=== PATIENT | female | born 1940 | race African-American/Black ===

== ENCOUNTER 2017-09-06 11:44 | Inpatient (IN) | payer BC, MEDICARE ==
[2017-09-06] MEDS: ACETAMINOPHEN 325 MG TABLET. PO (12:28)
[2017-09-06 12:57] LABS: BASO % 0 % (0-3); EOS % 1 % (0-3); HEMATOCRIT 31.7 % (36.0-47.0); HEMOGLOBIN 10.8 g/dL (12.0-15.5); LYMPH # 0.4 x10^3/uL (1.0-4.8); LYMPH % 10 % (24-48); MEAN CORPUSCULAR HEMOGLOBIN 32 pg (25-35); MEAN CORPUSCULAR HGB CONC 34 g/dL (31-37); MEAN CORPUSCULAR VOLUME 94 fL (79-100); MONO # 0.7 x10^3/uL (0.0-1.1); MONO % 17 % (0-9); NEUT % 72 % (31-73); PLATELET COUNT 254 x10^3/uL (140-400); RED BLOOD COUNT 3.38 x10^6/uL (3.50-5.40); RED CELL DISTRIBUTION WIDTH 13.8 % (11.5-14.5); WHITE BLOOD COUNT 4.2 x10^3/uL (4.0-11.0)
[2017-09-06 13:05] LABS: ADD MAN DIFF? YES
[2017-09-06 13:07] LABS: ANION GAP 6 (6-14); BLOOD UREA NITROGEN 20 mg/dL (7-20); BUN/CREATININE RATIO 14 (6-20); CALCIUM 8.8 mg/dL (8.5-10.1); CARBON DIOXIDE 29 mmol/L (21-32); CHLORIDE 101 mmol/L (98-107); CREATININE 1.4 mg/dL (0.6-1.0); GFR 44.2; GLUCOSE 110 mg/dL (70-99); SODIUM 136 mmol/L (136-145)
[2017-09-06 13:14] LABS: LACTIC ACID 0.9 mmol/L (0.4-2.0)
[2017-09-06 13:17] LABS: NT-PRO BNP 1002 pg/mL (0-449)
[2017-09-06 13:20] LABS: ALBUMIN 3.5 g/dL (3.4-5.0); ALBUMIN/GLOBULIN RATIO 0.7 (1.0-1.7); ALK PHOS 60 U/L (46-116); ALT (SGPT) 12 U/L (14-59); AST (SGOT) 18 U/L (15-37); INFLUENZA A PATIENT NEGATIVE (NEGATIVE); INFLUENZA B PATIENT NEGATIVE (NEGATIVE); OBC FLU VALID; TOTAL BILIRUBIN 0.3 mg/dL (0.2-1.0); TOTAL PROTEIN 8.2 g/dL (6.4-8.2)
[2017-09-06 13:24] LABS: % BASOS 1 % (0-3); % EOS 1 % (0-5); % LYMPHS 10 % (24-48); % MONOS 15 % (0-10); % SEGS 73 % (35-66); PLT ESTIMATE ADEQUATE (ADEQUATE)
[2017-09-06] MEDS ORDERED: ACETAMINOPHEN 325 MG TABLET. PO (14:00)
[2017-09-06 14:02] LABS: TROPONINI < 0.017 ng/mL (0.000-0.055)
[2017-09-06] MEDS: FUROSEMIDE 20 MG/2 ML VIAL. IVP (14:46)
[2017-09-06 15:10] LABS: BILIRUBIN,URINE NEGATIVE (NEG); CLARITY,URINE CLEAR; COLOR,URINE YELLOW; GLUCOSE,URINE NEGATIVE (NEG); NITRITE,URINE NEGATIVE (NEG); PH,URINE 7.5; PROTEIN,URINE NEGATIVE (NEG-TRACE)
[2017-09-06] MEDS: IPRATRPIUM/ALBUTEROL 0.5/2.5MG 3 ML NEBU. NEB ×2 (15:18→20:51)
[2017-09-06 15:24] LABS: BACTERIA,URINE 0 /HPF (0-FEW); RBC,URINE 0 /HPF (0-2); SQUAMOUS EPITHELIAL CELL,UR FEW /LPF; WBC,URINE 0 /HPF (0-4)
[2017-09-06] MEDS: dilTIAZem IV PUSH 25 MG/5 ML VIAL IVP (17:24)
[2017-09-06] MEDS: dilTIAZem VIAL 125 MG in IV DEXTROSE 5% 100 ML IV (17:36)
[2017-09-06 19:43] LABS: TROPONINI < 0.017 ng/mL (0.000-0.055)
[2017-09-06] MEDS: BUDESONIDE 0.5 MG/2 ML NEBU. NEB (20:52)
[2017-09-06] MEDS: CETIRIZINE HCL 10 MG TABLET. PO (21:06)
[2017-09-06] MEDS: MONTELUKAST SODIUM 10 MG TABLET. PO (21:07)
[2017-09-07] MEDS: PROMETH/CODEINE 6.25/10MG 5 ML SYRUP. PO (01:16)
[2017-09-07 03:51] LABS: ADD MAN DIFF? NO
[2017-09-07] MEDS: dilTIAZem VIAL 125 MG in IV DEXTROSE 5% 100 ML IV (03:51)
[2017-09-07 03:55] LABS: BASO % 1 % (0-3); EOS % 0 % (0-3); HEMATOCRIT 31.8 % (36.0-47.0); LYMPH # 0.5 x10^3/uL (1.0-4.8); LYMPH % 13 % (24-48); MEAN CORPUSCULAR HEMOGLOBIN 32 pg (25-35); MEAN CORPUSCULAR HGB CONC 34 g/dL (31-37); MEAN CORPUSCULAR VOLUME 94 fL (79-100); MONO # 0.6 x10^3/uL (0.0-1.1); MONO % 19 % (0-9); NEUT # 2.3 x10^3uL (1.8-7.7); NEUT % 67 % (31-73); PLATELET COUNT 226 x10^3/uL (140-400); RED BLOOD COUNT 3.41 x10^6/uL (3.50-5.40); RED CELL DISTRIBUTION WIDTH 13.9 % (11.5-14.5); WHITE BLOOD COUNT 3.4 x10^3/uL (4.0-11.0)
[2017-09-07 04:09] LABS: ANION GAP 8 (6-14); BLOOD UREA NITROGEN 18 mg/dL (7-20); CALCIUM 8.9 mg/dL (8.5-10.1); CARBON DIOXIDE 28 mmol/L (21-32); CHLORIDE 97 mmol/L (98-107); CREATININE 1.6 mg/dL (0.6-1.0); GFR 37.9; GLUCOSE 121 mg/dL (70-99); MAGNESIUM 1.5 mg/dL (1.8-2.4); POTASSIUM 3.8 mmol/L (3.5-5.1); SODIUM 133 mmol/L (136-145)
[2017-09-07] MEDS: BUDESONIDE 0.5 MG/2 ML NEBU. NEB ×2 (08:42→18:22)
[2017-09-07] MEDS: IPRATRPIUM/ALBUTEROL 0.5/2.5MG 3 ML NEBU. NEB ×4 (08:42→18:22)
[2017-09-07] MEDS ORDERED: FUROSEMIDE 40 MG TABLET. PO (09:00)
[2017-09-07] MEDS: PANTOPRAZOLE 40 MG TABLET.DR. PO (09:04)
[2017-09-07] MEDS: LISINOPRIL 10 MG TABLET PO (09:06)
[2017-09-07 10:04] LABS: LACTIC ACID 1.1 mmol/L (0.4-2.0)
[2017-09-07] MEDS: MAGNESIUM SULFATE 4GM 100 ML IV (10:06)
[2017-09-07 10:58] LABS: THYROID STIM HORMONE (TSH) 1.841 uIU/mL (0.358-3.74)
[2017-09-07 10:58] LABS: FREE T4 1.11 ng/dL (0.76-1.46)
[2017-09-07] MEDS: CEFEPIME HCL 1 GM in IV NORMAL SALINE 50ML 50 ML IV ×2 (12:00→20:18)
[2017-09-07] MEDS: VANCOMYCIN 2 GM in IV DEXTROSE 5 %-0.2 % NACL 500 ML IV (12:58)
[2017-09-07] MEDS: VANCOMYCIN PER PHARMACY MC (13:32)
[2017-09-07 13:52] LABS: BILIRUBIN,URINE NEGATIVE (NEG); CLARITY,URINE CLEAR; COLOR,URINE YELLOW; GLUCOSE,URINE NEGATIVE (NEG); NITRITE,URINE NEGATIVE (NEG); PH,URINE 5.5; PROTEIN,URINE NEGATIVE (NEG-TRACE)
[2017-09-07 14:02] LABS: BACTERIA,URINE 0 /HPF (0-FEW); HYALINE CASTS, URINE OCCASIONAL /HPF; RBC,URINE 0 /HPF (0-2); SQUAMOUS EPITHELIAL CELL,UR FEW /LPF; WBC,URINE 0 /HPF (0-4)
[2017-09-07 16:03] LABS: CHOLESTEROL 195 mg/dL (0-200); HDLC 60 mg/dL (40-60); LDLC 119 mg/dL (0-100); NON-HDL CHOLESTEROL 135 mg/dL (0-129); TRIGLYCERIDES 79 mg/dL (0-150); VLDLC 16 mg/dL (0-40)
[2017-09-07 16:09] LABS: CHOLESTEROL/HDL RATIO 3.3
[2017-09-07] MEDS: ASPIRIN ENTERIC COATED 81 MG TABLET.DR. PO (16:21)
[2017-09-07] MEDS: METOPROLOL TART IMMED RELEASE 25 MG TABLET. PO ×2 (16:21→20:18)
[2017-09-07] MEDS: MONTELUKAST SODIUM 10 MG TABLET. PO (20:18)
[2017-09-07] MEDS: LACTOBACILLUS RHAMNOSUS GG 1 CAPSULE. PO (20:18)
[2017-09-07] MEDS: CETIRIZINE HCL 10 MG TABLET. PO (20:18)
[2017-09-08] MEDS: CEFEPIME HCL 1 GM in IV NORMAL SALINE 50ML 50 ML IV ×3 (05:49→20:38)
[2017-09-08 06:38] LABS: ADD MAN DIFF? NO
[2017-09-08 06:58] LABS: BASO % 0 % (0-3); EOS % 1 % (0-3); HEMATOCRIT 31.2 % (36.0-47.0); HEMOGLOBIN 10.6 g/dL (12.0-15.5); LYMPH # 0.7 x10^3/uL (1.0-4.8); LYMPH % 28 % (24-48); MEAN CORPUSCULAR HEMOGLOBIN 32 pg (25-35); MEAN CORPUSCULAR HGB CONC 34 g/dL (31-37); MEAN CORPUSCULAR VOLUME 94 fL (79-100); MONO # 0.6 x10^3/uL (0.0-1.1); MONO % 25 % (0-9); NEUT # 1.1 x10^3uL (1.8-7.7); NEUT % 46 % (31-73); PLATELET COUNT 200 x10^3/uL (140-400); RED BLOOD COUNT 3.33 x10^6/uL (3.50-5.40); RED CELL DISTRIBUTION WIDTH 14.2 % (11.5-14.5); WHITE BLOOD COUNT 2.4 x10^3/uL (4.0-11.0)
[2017-09-08 07:01] LABS: ANION GAP 7 (6-14); BLOOD UREA NITROGEN 23 mg/dL (7-20); CALCIUM 8.2 mg/dL (8.5-10.1); CARBON DIOXIDE 29 mmol/L (21-32); CHLORIDE 99 mmol/L (98-107); CREATININE 1.7 mg/dL (0.6-1.0); GFR 35.4; GLUCOSE 115 mg/dL (70-99); MAGNESIUM 2.5 mg/dL (1.8-2.4); POTASSIUM 3.8 mmol/L (3.5-5.1); SODIUM 135 mmol/L (136-145)
[2017-09-08] MEDS: IPRATRPIUM/ALBUTEROL 0.5/2.5MG 3 ML NEBU. NEB ×4 (07:57→19:05)
[2017-09-08] MEDS: BUDESONIDE 0.5 MG/2 ML NEBU. NEB ×2 (07:57→19:06)
[2017-09-08] MEDS: PROMETH/CODEINE 6.25/10MG 5 ML SYRUP. PO ×2 (08:40→21:57)
[2017-09-08] MEDS: PANTOPRAZOLE 40 MG TABLET.DR. PO (08:41)
[2017-09-08] MEDS: ASPIRIN ENTERIC COATED 81 MG TABLET.DR. PO (08:41)
[2017-09-08] MEDS: LACTOBACILLUS RHAMNOSUS GG 1 CAPSULE. PO ×2 (08:41→20:39)
[2017-09-08] MEDS: METOPROLOL TART IMMED RELEASE 25 MG TABLET. PO ×2 (08:41→20:39)
[2017-09-08] MEDS: LOSARTAN POTASSIUM 50 MG TABLET. PO (08:44)
[2017-09-08 09:14] LABS: PROCALCITONIN 0.15 ng/mL (0.00-0.10)
[2017-09-08] MEDS: VANCOMYCIN PER PHARMACY MC (10:43)
[2017-09-08] MEDS: VANCOMYCIN 1.75 GM in IV DEXTROSE 5 %-0.2 % NACL 500 ML IV (15:04)
[2017-09-08] MEDS: CETIRIZINE HCL 10 MG TABLET. PO (20:38)
[2017-09-08] MEDS: MONTELUKAST SODIUM 10 MG TABLET. PO (20:39)
[2017-09-08] MEDS: ATORVASTATIN CALCIUM 10 MG TABLET. PO (20:39)
[2017-09-09] MEDS: LORazepam 0.5 MG TABLET PO (03:03)
[2017-09-09 04:57] LABS: ADD MAN DIFF? NO
[2017-09-09 05:13] LABS: BASO % 1 % (0-3); EOS % 2 % (0-3); HEMATOCRIT 31.8 % (36.0-47.0); HEMOGLOBIN 10.8 g/dL (12.0-15.5); LYMPH # 0.9 x10^3/uL (1.0-4.8); LYMPH % 32 % (24-48); MEAN CORPUSCULAR HEMOGLOBIN 32 pg (25-35); MEAN CORPUSCULAR HGB CONC 34 g/dL (31-37); MEAN CORPUSCULAR VOLUME 94 fL (79-100); MONO # 0.5 x10^3/uL (0.0-1.1); MONO % 20 % (0-9); NEUT # 1.2 x10^3uL (1.8-7.7); NEUT % 45 % (31-73); PLATELET COUNT 200 x10^3/uL (140-400); RED BLOOD COUNT 3.37 x10^6/uL (3.50-5.40); RED CELL DISTRIBUTION WIDTH 13.8 % (11.5-14.5); WHITE BLOOD COUNT 2.7 x10^3/uL (4.0-11.0)
[2017-09-09 05:48] LABS: ANION GAP 7 (6-14); BLOOD UREA NITROGEN 31 mg/dL (7-20); CALCIUM 8.5 mg/dL (8.5-10.1); CARBON DIOXIDE 30 mmol/L (21-32); CHLORIDE 101 mmol/L (98-107); CREATININE 1.8 mg/dL (0.6-1.0); GFR 33.1; GLUCOSE 108 mg/dL (70-99); SODIUM 138 mmol/L (136-145)
[2017-09-09] MEDS: CEFEPIME HCL 1 GM in IV NORMAL SALINE 50ML 50 ML IV (05:52)
[2017-09-09] MEDS: IPRATRPIUM/ALBUTEROL 0.5/2.5MG 3 ML NEBU. NEB (07:23)
[2017-09-09] MEDS: BUDESONIDE 0.5 MG/2 ML NEBU. NEB (07:24)
[2017-09-09] MEDS: METOPROLOL TART IMMED RELEASE 25 MG TABLET. PO (08:48)
[2017-09-09] MEDS: LOSARTAN POTASSIUM 50 MG TABLET. PO (08:48)
[2017-09-09] MEDS: ASPIRIN ENTERIC COATED 81 MG TABLET.DR. PO (08:48)
[2017-09-09] MEDS: PANTOPRAZOLE 40 MG TABLET.DR. PO (08:48)
[2017-09-09] MEDS: LACTOBACILLUS RHAMNOSUS GG 1 CAPSULE. PO (08:48)
[2017-09-09] MEDS ORDERED: IV NORMAL SALINE 500ML BAG 500 ML IV (09:45)
== END 2017-09-09 12:35 | disposition home or self-care (01) | DRG 865 ==
LOC: ER 11:44 → 2 SOUTH 13:55
DX: B34.9 Viral infection, unspecified (principal); I50.31 Acute diastolic (congestive) heart failure; J18.9 Pneumonia, unspecified organism; I31.3 Pericardial effusion (noninflammatory); I13.0 Hypertensive heart and chronic kidney disease with heart failure and stage 1 through stage 4 chronic kidney disease, or unspecified chronic kidney disease; E83.42 Hypomagnesemia; D63.8 Anemia in other chronic diseases classified elsewhere; I35.0 Nonrheumatic aortic (valve) stenosis; E66.01 Morbid (severe) obesity due to excess calories; I47.1 Supraventricular tachycardia; N18.3 Chronic kidney disease, stage 3 (moderate); I16.0 Hypertensive urgency; D72.821 Monocytosis (symptomatic); E55.9 Vitamin D deficiency, unspecified; E78.5 Hyperlipidemia, unspecified; I25.10 Atherosclerotic heart disease of native coronary artery without angina pectoris; J30.9 Allergic rhinitis, unspecified; K21.9 Gastro-esophageal reflux disease without esophagitis; K76.0 Fatty (change of) liver, not elsewhere classified; Z96.659 Presence of unspecified artificial knee joint; M19.90 Unspecified osteoarthritis, unspecified site; Z82.49 Family history of ischemic heart disease and other diseases of the circulatory system; Z98.49 Cataract extraction status, unspecified eye; Z83.3 Family history of diabetes mellitus; Z90.710 Acquired absence of both cervix and uterus
CPT/HCPCS: 36415; 71046; 71250; 80048; 80053; 80061; 81001; 83605; 83735; 83880; 84145; 84439; 84443; 84484; 85007; 85025; 87040; 87804; 87804-59; 93005; 93306; 94640; 94760; 96374; 99285; 99285-25; J0692; J3370; J3475; J3490; J7620; J7626

== ENCOUNTER → 2021-10-19 | Outpatient (CLI) | payer BC ==
[2017-09-09 10:29] VITALS: BP 130/72
[~2021-10-19] MED LIST: ASPI-886 PO; ATOR10TA60 PO; BUPIVACAINE MPF 0.5% 10 ML VIAL. IJ ONE; CETI10TA16 PO; IOHEXOL 300 MG/ML 50 ML VIAL. INT ART ONE; LACT1CAP19 PO; LIDOCAINE 1% Multi-Dose 20 ML VIAL. INJ ONE; LISI10TA16 PO; METO25TA4 PO; MONT10TA49 PO; PROM118S5 PO; TRIA1CAP3 PO; TRIAMCINOLONE PRES.FREE 40 MG/ML VIAL. INT ART ONE
--- NOTE | 2021-10-19 16:03 | RAD ---
EXAM: Right hip injection WITH Fluoroscopic guidance CLINICAL HISTORY: Right hip pain COMPARISON: None pertinent TECHNIQUE: The patient was informed of the indications and alternatives for this procedure as well as risks and benefits. No immediate contraindication identified. The patient provided informed, written consent. Laterality was confirmed by the entire team following a time out. Following initial flouroscopic localization, a suitable area was sterilely prepped and draped. Local anesthesia was administered with 1% lidocaine. With fluoroscopic observation, a 22 gauge spinal needl e was advanced into the Right hip joint with confirmation of intra-articular position with infusion o f a few cc of iodinated contrast. Subsequent infusion 4 mL bupivacaine 0.5 percent and 2 mL Kenalog 4 0. Hemostasis with local pressure. Local clinical exam negative for immediate complication. Patient informed re local potential signs or symptoms that may indicate need to return to ER/Ordering physician for further evaluation. Patient informed re precautionary measures after intra-synovial in jection of anesthetic. Total Fluoroscopy time: 0.2 minutes Total spot images taken: 1 IMPRESSION: Successful intra-articular steroid injection of the Right hip per clinical request. Electronically signed by: Moo Scott MD (10/19/2021 4:00 PM) [id number]
== END | disposition home or self-care (01) ==
LOC: RAD 13:36
PROVIDERS: ATTEND Internal Medicine Rheumatology
DX: M25.551 Pain in right hip (principal); I10 Essential (primary) hypertension; M19.90 Unspecified osteoarthritis, unspecified site; Z79.82 Long term (current) use of aspirin; Z79.899 Other long term (current) drug therapy; Z98.890 Other specified postprocedural states
CPT/HCPCS: 20610; 77002; J3301; J3490; Q9967